=== PATIENT | male | born 1965 | race African-American/Black ===

== ENCOUNTER 2016-09-20 20:22 | Emergency (ER) | payer MEDICAID ==
[~2016-09-20] VITALS: Ht 175.3 cm; Wt 95.0 kg
[2016-09-20 20:30] VITALS: BP 153/89
== END 2016-09-20 21:25 | disposition left against medical advice (07) ==
LOC: ER 21:08
DX: R07.9 Chest pain, unspecified (principal); Z53.21 Procedure and treatment not carried out due to patient leaving prior to being seen by health care provider

== ENCOUNTER 2018-03-11 02:20 | Inpatient (IN) | payer MEDICAID ==
[~2018-03-11] VITALS: Ht 172.7 cm; Wt 98.4 kg
[2018-03-11] MEDS ORDERED: NITROGLYCERIN OINT 1GM/INCH UDPKT TD ONE (03:45)
[2018-03-11] MEDS ORDERED: ASPIRIN 81MG TABLET PO ONE (03:45)
[2018-03-11 03:51] LABS: EOSINOPHILS % 2.4 % (0.0-5.0); HEMOGLOBIN. 13.5 g/dL (14.0-18.0); LYMPHOCYTES % 29.6 % (20.0-50.0); MEAN CORPUSCULAR HEMOGLOBIN 30.2 pg (28.0-32.0); MEAN CORPUSCULAR VOLUME 89.3 fL (80.0-94.0); MEAN PLATELET VOLUME 10.1 fl (7.4-10.4); MONOCYTES % 11.7 % (2.0-8.0); NEUTROPHILS % 55.3 % (40.0-76.0); PLATELET 236 x1000/uL (130-400); RED BLOOD CELL COUNT 4.48 mill/uL (4.7-6.1); RED CELL DISTRIBUTION WIDTH 14.5 % (11.6-14.6)
[2018-03-11 04:06] LABS: CHLORIDE 105 mEq/L (98-107)
[2018-03-11] MEDS: LISINOPRIL 5MG TABLET PO SCH (09:00)
[2018-03-11] MEDS ORDERED: DEXTROSE 50% WATER 50ML SYRINGE IV PRN (09:00)
[2018-03-11] MEDS ORDERED: NITROGLYCERIN 0.4MG TABLET SL SL PRN (09:00)
[2018-03-11] MEDS: AMLODIPINE 5MG TABLET PO SCH (09:00)
[2018-03-11] MEDS: PANTOPRAZOLE 40MG DR TABLET PO SCH (09:30)
[2018-03-11 10:05] VITALS: BP 122/78
[2018-03-11 10:10] VITALS: BP 122/78
[2018-03-11 12:00] VITALS: BP 159/78
[2018-03-11] MEDS: BLOOD SUGAR DIAGNOSTIC STRIP TEST SCH ×3 (12:40→20:44)
[2018-03-11] MEDS: INSULIN LISPRO 100 UNITS/ML SUBCUT SCH ×3 (13:09→20:44)
[2018-03-11 16:00] VITALS: BP 132/84
[2018-03-11] MEDS: METFORMIN HCL 500MG TABLET PO SCH (17:10)
[2018-03-11] MEDS ORDERED: ATOR10TA MT (17:31)
[2018-03-11] MEDS ORDERED: METF1000 MT (17:31)
[2018-03-11] MEDS ORDERED: AMLO5TAB4 MT (17:31)
[2018-03-11] MEDS ORDERED: INSLIS SUBCUT (17:31)
[2018-03-11 19:29] LABS: *AMPHETAMINES SCREEN URINE NEGATIVE (NEGATIVE); *BARBITURATES SCREEN URINE NEGATIVE (NEGATIVE); *BENZODIAZEPINES SCREEN URINE NEGATIVE (NEGATIVE); *COCAINE SCREEN URINE NEGATIVE (NEGATIVE)
[2018-03-11 19:30] LABS: CANNABINOID URINE SCREEN NEGATIVE (NEGATIVE); METHADONE URINE SCREEN NEGATIVE (NEGATIVE); OPIATES URINE SCREEN NEGATIVE (NEGATIVE); PHENCYCLIDINE URINE SCREEN NEGATIVE (NEGATIVE)
[2018-03-11 20:00] VITALS: BP 136/78
[2018-03-11] MEDS: ATORVASTATIN CALCIUM 10MG TABLET PO SCH (20:45)
[2018-03-12] VITALS: BP 150/83
[2018-03-12] MEDS: ACETAMINOPHEN 325MG TABLET PO PRN ×2 (02:01→13:04)
[2018-03-12 04:00] VITALS: BP 140/74
[2018-03-12] MEDS: PANTOPRAZOLE 40MG DR TABLET PO SCH (06:22)
[2018-03-12] MEDS: INSULIN LISPRO 100 UNITS/ML SUBCUT SCH ×4 (06:22→22:00)
[2018-03-12] MEDS: BLOOD SUGAR DIAGNOSTIC STRIP TEST SCH ×4 (06:23→21:58)
[2018-03-12 08:00] VITALS: BP 155/92
[2018-03-12] MEDS: AMLODIPINE 5MG TABLET PO SCH ×2 (08:24→20:05)
[2018-03-12] MEDS: LISINOPRIL 5MG TABLET PO SCH (08:24)
[2018-03-12] MEDS: METFORMIN HCL 500MG TABLET PO SCH ×2 (08:24→17:31)
[2018-03-12 12:00] VITALS: BP 144/101
[2018-03-12] MEDS ORDERED: CLONIDINE 0.2MG TABLET PO PRN (12:15)
[2018-03-12] MEDS ORDERED: CLONIDINE 0.1MG TABLET PO PRN (13:15)
[2018-03-12] MEDS: ASPIRIN 81MG EC TABLET PO SCH (14:17)
[2018-03-12 15:16] LABS: *AMPHETAMINES SCREEN URINE NEGATIVE (NEGATIVE); *BARBITURATES SCREEN URINE NEGATIVE (NEGATIVE); *BENZODIAZEPINES SCREEN URINE NEGATIVE (NEGATIVE); *COCAINE SCREEN URINE NEGATIVE (NEGATIVE); CANNABINOID URINE SCREEN NEGATIVE (NEGATIVE); METHADONE URINE SCREEN NEGATIVE (NEGATIVE); OPIATES URINE SCREEN NEGATIVE (NEGATIVE); PHENCYCLIDINE URINE SCREEN NEGATIVE (NEGATIVE)
[2018-03-12 16:00] VITALS: BP 148/82
[2018-03-12] MEDS: HYDROCODONE/ACETAMINOPHEN 5/325MG TABLET PO PRN ×2 (16:27→20:09)
[2018-03-12 20:00] VITALS: BP 168/85
[2018-03-12] MEDS: ATORVASTATIN CALCIUM 10MG TABLET PO SCH (20:04)
[2018-03-13] VITALS (8 sets, daily range): BP systolic 127–168; BP diastolic 75–96
[2018-03-13] MEDS: PANTOPRAZOLE 40MG DR TABLET PO SCH (06:17)
[2018-03-13 06:25] LABS: BASOPHILS % 0.7 % (0.0-2.0); EOSINOPHILS % 2.3 % (0.0-5.0); HEMATOCRIT. 43.7 % (42.0-52.0); HEMOGLOBIN. 14.7 g/dL (14.0-18.0); LYMPHOCYTES % 28.5 % (20.0-50.0); MEAN CORPUSCULAR HEMOGLOBIN 30.2 pg (28.0-32.0); MEAN CORPUSCULAR VOLUME 89.9 fL (80.0-94.0); MEAN PLATELET VOLUME 10.2 fl (7.4-10.4); MONOCYTES % 11.5 % (2.0-8.0); PLATELET 254 x1000/uL (130-400); RED BLOOD CELL COUNT 4.86 mill/uL (4.7-6.1); RED CELL DISTRIBUTION WIDTH 14.4 % (11.6-14.6)
[2018-03-13] MEDS: BLOOD SUGAR DIAGNOSTIC STRIP TEST SCH ×3 (06:25→17:57)
[2018-03-13 06:37] LABS: CHLORIDE 101 mEq/L (98-107)
[2018-03-13 06:45] LABS: CREATINE KINASE MB FRACTION 1.5 ng/mL (0.5-3.6)
[2018-03-13 06:47] LABS: LDL CHOLESTEROL 89 mg/dL (5-100)
[2018-03-13 06:49] LABS: CREATINE KINASE 168 IU/L (39-308); HDL CHOLESTEROL 26 mg/dL (40-59)
[2018-03-13] MEDS: INSULIN LISPRO 100 UNITS/ML SUBCUT SCH ×3 (07:40→17:58)
[2018-03-13] MEDS: METFORMIN HCL 500MG TABLET PO SCH ×2 (08:47→17:57)
[2018-03-13] MEDS: ASPIRIN 81MG EC TABLET PO SCH (08:48)
[2018-03-13] MEDS: AMLODIPINE 5MG TABLET PO SCH (08:48)
[2018-03-13] MEDS: LISINOPRIL 5MG TABLET PO SCH (08:48)
[2018-03-13] MEDS ORDERED: REGADENOSON 0.4 MG/5 ML IV NR (10:00)
[2018-03-13] MEDS ORDERED: REGADENOSON 0.4 MG/5 ML IV ONE (11:52)
[2018-03-13] MEDS ORDERED: LISINOPRIL 5MG TABLET PO SCH (21:00)
[2018-03-14] MEDS ORDERED: LISINOPRIL 10MG TABLET PO SCH (09:00)
[2018-03-14] MEDS ORDERED: AMLODIPINE 10MG TABLET PO SCH (09:00)
== END 2018-03-13 20:05 | disposition home or self-care (01) | DRG 243 ==
LOC: ER 02:20 → 8WST 05:49 → EDBEDREQ 05:53 → EDBEDREQTM 05:53 → ENRESERV 07:00 → 8WST 09:58
PROVIDERS: ADMIT Internal Medicine Pulmonary Disease; ATTEND Internal Medicine Pulmonary Disease
DX: K21.9 Gastro-esophageal reflux disease without esophagitis (principal); E46 Unspecified protein-calorie malnutrition; I42.9 Cardiomyopathy, unspecified; I10 Essential (primary) hypertension; I25.10 Atherosclerotic heart disease of native coronary artery without angina pectoris; E11.9 Type 2 diabetes mellitus without complications; E78.5 Hyperlipidemia, unspecified; F14.10 Cocaine abuse, uncomplicated; F10.10 Alcohol abuse, uncomplicated; F17.210 Nicotine dependence, cigarettes, uncomplicated; E78.00 Pure hypercholesterolemia, unspecified; I34.0 Nonrheumatic mitral (valve) insufficiency; Z82.5 Family history of asthma and other chronic lower respiratory diseases; I25.2 Old myocardial infarction; Z68.33 Body mass index [BMI] 33.0-33.9, adult
CPT/HCPCS: 36415; 71045; 78452; 80053; 80061; 80305; 82550; 82553; 82962; 83036; 83735; 83880; 84443; 84484; 85025; 85379; 93005; 93017; 93306; 99285; A9500; J1815; J2785

== ENCOUNTER 2018-11-02 02:39 | Emergency (ER) | payer MEDICAID, OTHER ==
[~2018-11-02] VITALS: Ht 188 cm; Wt 100.0 kg
[~2018-11-02 02:39] MED LIST: AMLO5TAB4 MT; ATOR10TA MT; INSLIS SUBCUT; METF1000 MT
[2018-11-02] MEDS ORDERED: FAMOTIDINE 20MG/2ML VIAL IV STA (03:41)
[2018-11-02] MEDS ORDERED: SODIUM CHLORIDE 0.9% 1,000 ML IV ONE (03:41)
[2018-11-02] MEDS ORDERED: MORPHINE SULFATE 4 MG/ML CPJ (NOT FOR IM USE) IV STA (03:41)
[2018-11-02] MEDS ORDERED: ONDANSETRON HCL 4MG/2ML INJ IV STA (03:41)
[2018-11-02 04:22] LABS: CHLORIDE 106 mEq/L (98-107)
[2018-11-02 04:23] LABS: EOSINOPHILS % 1.5 % (0.0-5.0); HEMATOCRIT. 41.8 % (42.0-52.0); LYMPHOCYTES % 26.9 % (20.0-50.0); MEAN CORPUSCULAR HEMOGLOBIN 29.4 pg (28.0-32.0); MEAN PLATELET VOLUME 9.4 fl (7.4-10.4); NEUTROPHILS % 61.6 % (40.0-76.0); PLATELET 267 x1000/uL (130-400); RED BLOOD CELL COUNT 4.75 mill/uL (4.7-6.1); RED CELL DISTRIBUTION WIDTH 13.7 % (11.6-14.6)
[2018-11-02 05:08] LABS: CLARITY URINE CLEAR (CLEAR); COLOR URINE YELLOW (YELLOW); KETONES URINE NEGATIVE (NEGATIVE); LEUKOCYTE ESTERASE URINE NEGATIVE (NEGATIVE); NITRITE URINE NEGATIVE (NEGATIVE); OCCULT BLOOD URINE NEGATIVE (NEGATIVE); PROTEIN URINE NEGATIVE (NEGATIVE); UROBILINOGEN URINE 0.2 E.U./dL (0.2-1.0)
[2018-11-02] MEDS ORDERED: IOHEXOL-300 100 ML BOTTLE ONE (05:15)
[2018-11-02 06:15] VITALS: BP 132/85
== END 2018-11-02 06:18 | disposition home or self-care (01) ==
LOC: ER 03:35
DX: R10.13 Epigastric pain (principal); F90.9 Attention-deficit hyperactivity disorder, unspecified type; K42.9 Umbilical hernia without obstruction or gangrene; E11.65 Type 2 diabetes mellitus with hyperglycemia; I10 Essential (primary) hypertension; I25.2 Old myocardial infarction; F17.200 Nicotine dependence, unspecified, uncomplicated; Z98.890 Other specified postprocedural states; Z79.899 Other long term (current) drug therapy; Z79.4 Long term (current) use of insulin
CPT/HCPCS: 36415; 74177; 76705; 80053; 81003; 83605; 83690; 85025; 96361; 96374; 96375; 99284; J2270; J2405; J3490; J7030; Q9967; Z7610

== ENCOUNTER 2020-08-29 16:55 | Inpatient (IN) | payer OTHER ==
[~2020-08-29] VITALS: Ht 170.2 cm; Wt 70.3 kg
[2020-08-29 18:21] LABS: BASOPHILS % 0.9 % (0.0-2.0); EOSINOPHILS % 1.1 % (0.0-5.0); HEMATOCRIT. 40.1 % (42.0-52.0); HEMOGLOBIN. 13.3 g/dL (14.0-18.0); MEAN CORPUSCULAR HEMOGLOBIN 32.4 pg (28.0-32.0); MEAN CORPUSCULAR VOLUME 98.3 fL (80.0-94.0); MEAN PLATELET VOLUME 9.1 fl (7.4-10.4); MONOCYTES % 8.8 % (2.0-8.0); NEUTROPHILS % 63.2 % (40.0-76.0); PLATELET 279 x1000/uL (130-400); RED BLOOD CELL COUNT 4.09 mill/uL (4.7-6.1); RED CELL DISTRIBUTION WIDTH 13.4 % (11.6-14.6)
[2020-08-29 18:30] LABS: CHLORIDE 104 mEq/L (98-107)
[2020-08-29] MEDS ORDERED: CLINDAMYCIN HCL 150MG CAPSULE PO SCH (18:45)
[2020-08-29] MEDS ORDERED: SODIUM CHLORIDE 0.9% 1,000 ML IV ONE (18:45)
[2020-08-29] MEDS ORDERED: MORPHINE SULFATE 4 MG/ML CPJ (NOT FOR IM USE) IV ONE (21:15)
[2020-08-29] MEDS ORDERED: ASPIRIN 325MG EC TABLET PO ONE (21:15)
[2020-08-29] MEDS ORDERED: INSULIN LISPRO 100 UNITS/ML SUBCUT ONE (21:45)
[2020-08-30] MEDS ORDERED: LISINOPRIL 10MG TABLET PO ONE (01:30)
[2020-08-30] MEDS ORDERED: AMLODIPINE 5MG TABLET PO ONE (01:30)
[2020-08-30 03:10] VITALS: BP 165/81
[2020-08-30 04:00] VITALS: BP 148/87
[2020-08-30] MEDS ORDERED: DEXTROSE 50% WATER 50ML SYRINGE IV PRN (06:15)
[2020-08-30] MEDS: BLOOD SUGAR DIAGNOSTIC STRIP TEST SCH ×4 (06:22→21:00)
[2020-08-30] MEDS: HYDROCODONE/ACETAMINOPHEN 5/325MG TABLET PO PRN ×2 (06:46→12:27)
[2020-08-30] MEDS: SODIUM CHLORIDE 0.9% 1,000 ML IV SCH (06:48)
[2020-08-30] MEDS: INSULIN LISPRO 100 UNITS/ML SUBCUT SCH ×4 (06:54→22:18)
[2020-08-30 08:00] VITALS: BP 133/72
[2020-08-30] MEDS: ASPIRIN 81MG TABLET PO SCH (08:13)
[2020-08-30] MEDS: ENOXAPARIN 40MG/0.4ML SYR SUBCUT SCH (08:14)
[2020-08-30] MEDS ORDERED: ENOXAPARIN 30MG/0.3ML SYR SUBCUT SCH (09:00)
[2020-08-30] MEDS: LOSARTAN POTASSIUM 50 MG TABLET PO SCH ×2 (09:05→22:10)
[2020-08-30] MEDS: INSULIN GLARGINE UD 100 UNITS/ML SYR SUBCUT SCH ×2 (10:36→22:18)
[2020-08-30 12:00] VITALS: BP 133/72
[2020-08-30] MEDS ORDERED: HYDROCODONE/ACETAMINOPHEN 10/325MG TABLET PO PRN (14:30)
[2020-08-30] MEDS ORDERED: HYDROCODONE/ACETAMINOPHEN 10/325MG TABLET PO NR (14:30)
[2020-08-30] MEDS ORDERED: VANCOMYCIN 1 G PREMIX 200 ML IV NR (15:30)
[2020-08-30 16:00] VITALS: BP 170/95
[2020-08-30] MEDS: HYDRALAZINE HCL 100MG TABLET PO SCH (18:19)
[2020-08-30 19:05] LABS: OPIATES URINE SCREEN PRESUMTIVE POSITIVE (NEGATIVE); PHENCYCLIDINE URINE SCREEN NEGATIVE (NEGATIVE)
[2020-08-30 19:06] LABS: *AMPHETAMINES SCREEN URINE NEGATIVE (NEGATIVE); *BARBITURATES SCREEN URINE NEGATIVE (NEGATIVE); *BENZODIAZEPINES SCREEN URINE NEGATIVE (NEGATIVE); *COCAINE SCREEN URINE PRESUMTIVE POSITIVE (NEGATIVE); CANNABINOID URINE SCREEN NEGATIVE (NEGATIVE); METHADONE URINE SCREEN NEGATIVE (NEGATIVE)
[2020-08-30 20:00] VITALS: BP 148/77
[2020-08-31] VITALS: BP 165/82
[2020-08-31] MEDS: VANCOMYCIN 1 G PREMIX 200 ML IV SCH ×2 (00:23→08:42)
[2020-08-31 04:00] VITALS: BP 160/91
[2020-08-31] MEDS: BLOOD SUGAR DIAGNOSTIC STRIP TEST SCH ×2 (05:24→12:10)
[2020-08-31 05:51] LABS: EOSINOPHILS % 1.9 % (0.0-5.0); HEMATOCRIT. 37.3 % (42.0-52.0); HEMOGLOBIN. 12.5 g/dL (14.0-18.0); LYMPHOCYTES % 39.2 % (20.0-50.0); MEAN CORPUSCULAR HEMOGLOBIN 32.6 pg (28.0-32.0); MEAN CORPUSCULAR VOLUME 97.4 fL (80.0-94.0); MEAN PLATELET VOLUME 8.9 fl (7.4-10.4); MONOCYTES % 10.5 % (2.0-8.0); NEUTROPHILS % 47.4 % (40.0-76.0); PLATELET 285 x1000/uL (130-400); RED BLOOD CELL COUNT 3.83 mill/uL (4.7-6.1); RED CELL DISTRIBUTION WIDTH 13.8 % (11.6-14.6)
[2020-08-31] MEDS: INSULIN LISPRO 100 UNITS/ML SUBCUT SCH ×2 (05:54→13:17)
[2020-08-31 06:05] LABS: CHLORIDE 107 mEq/L (98-107)
[2020-08-31 08:00] VITALS: BP 164/97
[2020-08-31] MEDS: HYDRALAZINE HCL 100MG TABLET PO SCH (08:42)
[2020-08-31] MEDS: ASPIRIN 81MG TABLET PO SCH (08:42)
[2020-08-31] MEDS: LOSARTAN POTASSIUM 50 MG TABLET PO SCH (08:42)
[2020-08-31] MEDS: ENOXAPARIN 40MG/0.4ML SYR SUBCUT SCH (08:42)
[2020-08-31] MEDS ORDERED: POTASSIUM CHLORIDE 20MEQ TABLET SR PO NR (09:15)
[2020-08-31] MEDS ORDERED: AMLODIPINE 10MG TABLET PO SCH (09:15)
[2020-08-31] MEDS ORDERED: HYDR100T26 PO (09:16)
[2020-08-31] MEDS ORDERED: LOSA50TA3 PO (09:16)
[2020-08-31] MEDS ORDERED: AMLO5TAB4 MT (09:16)
[2020-08-31] MEDS ORDERED: LANTUSUD SUBCUT (09:16)
[2020-08-31] MEDS ORDERED: SULF1TAB48 MT (09:17)
[2020-08-31] MEDS: INSULIN GLARGINE UD 100 UNITS/ML SYR SUBCUT SCH (10:14)
[2020-08-31 12:00] VITALS: BP 152/85
[2020-08-31] MEDS: SODIUM CHLORIDE 0.9% 1,000 ML IV SCH (13:20)
[2020-08-31] MEDS ORDERED: HYDR-4001 MT (14:20)
[2020-08-31] MEDS ORDERED: HYDRALAZINE HCL 100MG TABLET PO SCH (15:00)
[2020-08-31] MEDS ORDERED: VANCOMYCIN 750 MG PREMIX 150 ML IV SCH (16:00)
[2020-08-31 16:51] VITALS: BP 142/75
== END 2020-08-31 17:20 | disposition home or self-care (01) | DRG 351 ==
LOC: ER 17:07 → 8WST 22:47 → EDBEDREQ 23:37 → ENRESERV 08-30 00:25
PROVIDERS: ADMIT Ophthalmology; ATTEND Ophthalmology
DX: M79.89 Other specified soft tissue disorders (principal); I16.0 Hypertensive urgency; L08.9 Local infection of the skin and subcutaneous tissue, unspecified; E11.65 Type 2 diabetes mellitus with hyperglycemia; E44.0 Moderate protein-calorie malnutrition; E87.8 Other disorders of electrolyte and fluid balance, not elsewhere classified; I10 Essential (primary) hypertension; I25.2 Old myocardial infarction; E66.9 Obesity, unspecified; Z68.24 Body mass index [BMI] 24.0-24.9, adult; Z79.4 Long term (current) use of insulin; Z79.899 Other long term (current) drug therapy
CPT/HCPCS: 36415; 71045; 73200; 80048; 80053; 80305; 82010; 82962; 83036; 83880; 84484; 85025; 93005; 93306; 99291; C1893; J1650; J1815; J2270; J3370; J7030

== ENCOUNTER 2020-11-02 14:16 | Emergency (ER) | payer MEDICAID, OTHER ==
[~2020-11-02] VITALS: Ht 170.2 cm; Wt 82.0 kg
[~2020-11-02 14:16] MED LIST changes: +HYDR-4001 MT; +HYDR100T26 PO; +LANTUSUD SUBCUT; +LOSA50TA3 PO; +SULF1TAB48 MT
[2020-11-02 14:21] VITALS: BP 172/84
== END 2020-11-02 18:02 | disposition left against medical advice (07) ==
LOC: ER 14:16
DX: Z53.21 Procedure and treatment not carried out due to patient leaving prior to being seen by health care provider (principal)